=== PATIENT | female | born 1945 | race Two or more races ===

== ENCOUNTER 2020-08-25 16:41 | Outpatient (AMBR) | payer MEDICARE, MEDICAID, SELFPAY ==
--- NOTE | 2020-08-25 17:06 | PTNOTE_ITS ---
PT OP Initial Eval Patient Information Visit Reasons: LS SPINE Medical Diagnosis: DJD L/s Treatment Dx #1: LBP Start of Care: 08/25/20 Date of Onset: 6 weeks ago Initial Assessment Subjective Pt is 75 yr old serbian speaking female who c/o increasing LBP x6 weeks. She points to the flanks as site of pain that increases with transferring from supine to sitting and sit to stand. She is independent with ADL's but pain limits standing to about 20 mins. She started using a SPC for balance over the past week since she lists to that side. She states she has scoliosis and says she can't bend without a back brace. PLOF: she was able to walk and stand without LBP or assistive device PMH: B TKA's, HTN, allergies, OA, gallstones, osteoporosis Imaging: with provider Pt goal: to get rid of the pain Objective Trunk ArOM: B SB 50% with pain B Extension: to neutral limited by pain Flexion: 14 from floor with LBP B rotation: 60% LE strength: B hamstrings: 4-/5 Quads 4-/5 Hip abd/add 4-/5 TTP: moderate L paraspinals L2-3 and diffusely L3-S1, PSIS L>R lumbar paraspinal atrophy Sensation: R medial ankle diminished sensation TTP: lateral lower quadrants moderately from L1 to PSIS Assessment Pt presents with trunk extension sensitivity and overlying myofascial pain and spasming of lateral L/S. She has lumbar extensor atrophy and pain with prolonged standing. Pt has poor/fair pelvic kinematics and difficulty finding neutral spine. 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 Pt requires skilled therapy in order to decrease pain and improve standing tolerance and has fair rehab potential. Short Term and Web Editor Goals 1. Ind with HEP 2. Improved standing tolerance to 30 minutes with <=4/10 LBP 3. Pt will improve ambulatory distance to 2 [address] 4. Pt will squat x15 with lumbar lordosis and no increase in LBP Treatment Plan 90 day POC in order to complete visits. Pt requires skilled therapy in order to increase strength, decrease pain and address aforementioned impairments. Rx may consist of Therex, Manual therapy, Neuromuscular re-education. Modalities as indicated-moist heat packs, ice packs, mechanical traction, estim Frequency and Duration 2x a week for 6 weeks Certification Dates: 08/25/20 to 11/23/20 Office Procedures PT Procedures PT Date of Service: 08/25/20 OP PT Eval Mod Complex 30 minutes: Yes
--- NOTE | 2020-08-31 18:29 | PT.ODAYNRPT ---
PT Outpatient Daily Note Date of Service: 08/31/20 OP Daily Note Visit Reasons: LS SPINE Outpatient Physical Therapy Treatment Date: 08/31/20 Subjective: Pt points to the beltline as site of pain today Objective: See F/S for therex MT: STM L4-5, L5-S1 region x10' Mechanical traction L/S x10' Assessment: Moderate/high tissue irritability of L/S limits transitional movements, transfers and LE strength. Good response to traction straps tightness and compression to lessen LBP. Plan: Continue per POC Length of Time (minutes) of Treatment: 30 Minutes Office Procedures PT Procedures PT Date of Service: 08/31/20 Traction Mechanical: Yes Therapeutic Exercise 15 minutes: Yes Manual Conductor Symphonic Orchestra 15 minutes: Yes PT Procedures PT Date of Service: 08/25/20 OP PT Eval Mod Complex 30 minutes: Yes
--- NOTE | 2020-09-07 18:30 | PT.ODAYNRPT ---
PT Outpatient Daily Note Date of Service: 09/07/20 OP Daily Note Visit Reasons: LS SPINE Outpatient Physical Therapy Treatment Date: 09/07/20 Subjective: Feels about the same today as last visit Objective: See F/S for therex MHP during supine therex Mechanical traction L/S x10' Assessment: Moderate/high tissue irritability of L/S limits transitional movements, transfers and LE strength. Good response to traction straps tightness and compression to lessen LBP. Plan: Continue per POC Length of Time (minutes) of Treatment: 30 Minutes Office Procedures PT Procedures PT Date of Service: 08/31/20 Traction Mechanical: Yes Therapeutic Exercise 15 minutes: Yes Manual Child Support Specialist 15 minutes: Yes PT Procedures PT Date of Service: 09/07/20 Traction Mechanical: Yes Therapeutic Exercise 15 minutes: Yes PT Procedures PT Date of Service: 08/25/20 OP PT Eval Mod Complex 30 minutes: Yes
== END 2020-09-12 23:59 | disposition home or self-care (01) ==
PROVIDERS: PCP Physician Assistant; Referring Provider Physician Assistant; Visit Provider Orthopaedic Surgery
DX: M54.5 Low back pain (principal); M81.0 Age-related osteoporosis without current pathological fracture; I10 Essential (primary) hypertension
CPT/HCPCS: 97012; 97110; 97140; 97162

== ENCOUNTER → 2024-10-21 | Outpatient (BNVA) | payer MEDICARE, MEDICAID, SELFPAY | END | disposition home or self-care (01) | PROVIDERS: PCP Nurse Practitioner Primary Care; Referring Provider Nurse Practitioner Primary Care; Visit Provider Nurse Practitioner Primary Care | DX: R10.13 Epigastric pain (principal); R11.0 Nausea; Z01.810 Encounter for preprocedural cardiovascular examination | CPT/HCPCS: 81001; 93005; 99213; Q0162; A9270 ==

== ENCOUNTER → 2024-10-25 | Outpatient (BNVA) | payer MEDICARE, MEDICAID, SELFPAY | END | disposition home or self-care (01) | PROVIDERS: PCP Nurse Practitioner Primary Care; Referring Provider Nurse Practitioner Primary Care; Visit Provider Nurse Practitioner Primary Care | DX: R10.13 Epigastric pain (principal); N30.00 Acute cystitis without hematuria | CPT/HCPCS: 99213 ==

== ENCOUNTER → 2024-11-11 | Outpatient (BNVA) | payer MEDICARE, MEDICAID, SELFPAY | END | disposition home or self-care (01) | PROVIDERS: PCP Nurse Practitioner Primary Care; Referring Provider Nurse Practitioner Primary Care; Visit Provider Nurse Practitioner Primary Care | DX: R73.03 Prediabetes (principal); E78.5 Hyperlipidemia, unspecified; I10 Essential (primary) hypertension; Z71.2 Person consulting for explanation of examination or test findings; E55.9 Vitamin D deficiency, unspecified | CPT/HCPCS: 99213 ==

== ENCOUNTER → 2025-01-17 | Outpatient (BNVA) | payer MEDICARE, MEDICAID, SELFPAY | END | disposition home or self-care (01) | PROVIDERS: PCP Nurse Practitioner Family; Referring Provider Nurse Practitioner Family; Visit Provider Nurse Practitioner Family | DX: R19.7 Diarrhea, unspecified (principal); M19.91 Primary osteoarthritis, unspecified site | CPT/HCPCS: 99213 ==

== ENCOUNTER → 2025-02-03 | Outpatient (BNVA) | payer MEDICARE, MEDICAID, SELFPAY | END | disposition home or self-care (01) | PROVIDERS: PCP Nurse Practitioner Family; Referring Provider Nurse Practitioner Family; Visit Provider Nurse Practitioner Family | DX: R73.03 Prediabetes (principal); E78.5 Hyperlipidemia, unspecified; I10 Essential (primary) hypertension; Z71.2 Person consulting for explanation of examination or test findings | CPT/HCPCS: 99212; G0463 ==

== ENCOUNTER → 2025-03-04 | Outpatient (BNVA) | payer MEDICARE, MEDICAID, SELFPAY | END | disposition home or self-care (01) | PROVIDERS: PCP Nurse Practitioner Family; Referring Provider Nurse Practitioner Family; Visit Provider Nurse Practitioner Family | DX: I10 Essential (primary) hypertension (principal); J00 Acute nasopharyngitis [common cold]; J30.9 Allergic rhinitis, unspecified | CPT/HCPCS: 90471; 90472; 99213 ==

== ENCOUNTER → 2025-04-04 | Outpatient (BNVA) | payer MEDICARE, MEDICAID, SELFPAY | END | disposition home or self-care (01) | PROVIDERS: PCP Nurse Practitioner Primary Care; Referring Provider Nurse Practitioner Primary Care; Visit Provider Nurse Practitioner Family | DX: R07.81 Pleurodynia (principal) | CPT/HCPCS: 99214; A9270 ==

== ENCOUNTER → 2025-04-04 | Outpatient (CLI) | payer MEDICARE, MEDICAID, SELFPAY ==
--- NOTE | 2025-04-04 15:09 | XR_ITS ---
Examination: Bilateral ribs with upright PA chest 5 views TECHNIQUE: Upright PA chest, [place] right and left ribs total 5 views Date 30/01/2025 1527 hours INDICATIONS: Patient fell 2 years ago with injury to the right chest right rib pain FINDINGS: Mild prominence left ventricle Cardiac leads satisfactory position No pneumothorax No acute rib fractures IMPRESSION: No pneumothorax pulmonary contusion or hemothorax No acute rib fractures
--- NOTE | 2025-04-04 15:09 | XR_ITS ---
Examination: PA lateral chest 2 views TECHNIQUE: Upright PA lateral chest 2 views Date and time: April 04, 2025 1525 hours INDICATIONS: Patient fell 2 years ago with persistent right chest pain. FINDINGS: Mild prominence of ventricle Cardiac leads satisfactory position No pneumothorax Prominent osteopenia No acute clavicle or rib fractures or thoracic vertebral body fractures IMPRESSION: No pneumothorax No acute clavicle or rib or thoracic fractures
== END | disposition home or self-care (01) ==
LOC: CDIM 14:57
PROVIDERS: PCP Nurse Practitioner Family; Referring Provider Nurse Practitioner Family; Visit Provider Nurse Practitioner Family
DX: R07.81 Pleurodynia (principal); S29.9XXS Unspecified injury of thorax, sequela; W19.XXXS Unspecified fall, sequela
CPT/HCPCS: 71046; 71110

== ENCOUNTER → 2025-04-17 | Outpatient (CLI) | payer MEDICARE, MEDICAID, SELFPAY ==
--- NOTE | 2025-04-17 12:24 | XR_ITS ---
Examination: Left knee 4 views TECHNIQUE: AP oblique lateral axial left knee 4 views Date and time: April 17, 2025 1241 hours INDICATIONS: Left knee pain getting worse. FINDINGS: Total left knee arthroplasty. Satisfactory alignment. Prominent osteopenia. No loosening of the prosthetic components. No patellar dislocation IMPRESSION: Total left knee arthroplasty with satisfactory alignment No loosening of the prosthetic components is
== END | disposition home or self-care (01) ==
LOC: CDIM 12:17
PROVIDERS: Referring Provider Nurse Practitioner Primary Care; Visit Provider Nurse Practitioner Primary Care
DX: M25.562 Pain in left knee (principal); Z96.659 Presence of unspecified artificial knee joint
CPT/HCPCS: 73564

== ENCOUNTER → 2025-04-17 | Outpatient (BNVA) | payer MEDICARE, MEDICAID, SELFPAY | END | disposition home or self-care (01) | PROVIDERS: PCP Nurse Practitioner Family; Referring Provider Nurse Practitioner Family; Visit Provider Nurse Practitioner Family | DX: M25.562 Pain in left knee (principal); Z96.652 Presence of left artificial knee joint | CPT/HCPCS: 99213 ==

== ENCOUNTER → 2025-04-23 | Outpatient (BNVA) | payer MEDICARE, MEDICAID, SELFPAY | END | disposition home or self-care (01) | PROVIDERS: PCP Nurse Practitioner Primary Care; Referring Provider Nurse Practitioner Primary Care; Visit Provider Nurse Practitioner Primary Care | DX: M25.562 Pain in left knee (principal); Z96.652 Presence of left artificial knee joint | CPT/HCPCS: 99212; G0463 ==

== ENCOUNTER → 2025-05-06 | Outpatient (BNVA) | payer MEDICARE, MEDICAID, SELFPAY | END | disposition home or self-care (01) | PROVIDERS: PCP Nurse Practitioner Primary Care; Referring Provider Nurse Practitioner Primary Care; Visit Provider Nurse Practitioner Family | DX: R42 Dizziness and giddiness (principal) | CPT/HCPCS: 82948; 85018; 93005; 99214 ==

== ENCOUNTER → 2025-05-13 | Outpatient (BNVA) | payer MEDICARE, MEDICAID, SELFPAY | END | disposition home or self-care (01) | PROVIDERS: PCP Nurse Practitioner Family; Referring Provider Nurse Practitioner Family; Visit Provider Nurse Practitioner Family | DX: R42 Dizziness and giddiness (principal) | CPT/HCPCS: 99214 ==

== ENCOUNTER → 2025-05-20 | Outpatient (BNVA) | payer MEDICARE, MEDICAID, SELFPAY | END | disposition home or self-care (01) | PROVIDERS: PCP Nurse Practitioner Primary Care; Referring Provider Nurse Practitioner Primary Care; Visit Provider Nurse Practitioner Primary Care | DX: R42 Dizziness and giddiness (principal); E78.5 Hyperlipidemia, unspecified; R73.03 Prediabetes; I10 Essential (primary) hypertension; Z71.2 Person consulting for explanation of examination or test findings | CPT/HCPCS: 99212; G0463 ==

== ENCOUNTER 2025-05-23 08:03 | Outpatient (AMB) | payer MEDICARE, MEDICAID, SELFPAY ==
--- NOTE | 2025-05-23 08:34 | ORTHONT_ITS ---
Vital signs 05/23/25 08:42 Height 1.53 m Height Method Measured Weight 77.196 kg Weight Measurement Method Standing Scale BMI 32.9 BP 157/74 H Blood Pressure Source Automatic Cuff Blood Pressure Location Left Upper Arm Position Sitting Respiration 16 Pulse 67 Pulse Source Monitor Temp 98.0 F Temp Source Temporal Artery Scan Pulse Oximetry (%) 94 L Oxygen Delivery Method Room Air Med/Allergies Allergies & Medications Allergies No Known Allergies Allergy (Verified 05/23/25 08:43) Medication Reconciliation atorvastatin 20 mg tablet 20 mg PO QDAY 01/16/24 [History Confirmed 05/23/25] losartan 25 mg tablet 25 mg PO QDAY #90 tabs 05/06/25 [Rx Confirmed 05/23/25] calcium carbonate 600 mg (1.2 x 500 mg calcium (1,250 mg)) PO QDAY #90 tabs 05/20/25 [Rx Confirmed 05/23/25] Exam Exam Patient is in no acute distress and is cooperative with the examination today. Patient has a normal mood and affect. Breathing is nonlabored. In no respiratory distress. Bilateral extremities were evaluated and demonstrates sensation intact to light touch. Palpable pedal pulses are present. No significant edema is present. Left knee incisions clean dry intact. Range of motion is 0 to 110 degrees. Knee stable varus valgus stress as well as AP translation X-rays from April 17, 2025 demonstrate a cemented revision semiconstrained total knee replacement in good alignment position. I do not see any evidence of loosening. Assessment and Plan Problem List (1) Hx of total knee replacement: Qualifiers: Laterality: left Qualified Code(s): Z96.652 - Presence of left artificial knee joint Status: Acute Plan: Patient is an 80-year-old female with a revision total knee replacement for loosening 2 years ago. She reports she still has some tenderness and numbness. We discussed that some of the numbness and tingling is normal given that she has had multiple surgeries. The majority the numbness is adjacent to the incision. We looked at her x-rays and structurally looks good. Her knee feels stable. We can rule out infection but she would like to start physical therapy at this time which I think is reasonable. Advanced Care Planning Discussion Advance care planning discussed with:: patient Office Procedures GNS Level of Care Nursing/Assessment Patient Status: Initial/New Patient Nursing Assessment/Reassesment: Medication Reconciliation, Update PMH in EMR and Vital Signs Coordination of Care: Complex Care and Chronic Disease 1-5, Education Complex Pt/Fam, Consent,records obtained, informed consent, Lab and Imaging orders and Staff clarify orders Special Needs: Language special needs New Patient Charge New Patient Point Assignment: 1104 New Patient Point Charge: MOISTURE MACHINE TENDER Level 3 ([id number]) MA Intake Visit Data Collection New Patient or Established: New Patient (never been to [facility]) Reason for Visit:: LEFT KNEE PAIN Seen by Clinical Staff ONLY (RN/MA): No Fishing Captain Required: Yes PCP or OBGYN visit in last 3 months: Yes Hx Now: No Do You Feel Safe at Home: Yes Authorities Contacted: N/A Questionairres Past Medical History Past Medical History Have you ever been diagnosed with any of the following: Neurological Problems Cerebrovascular Accident (CVA): No Transient Ischemic Attacks (TIA): No Dementia: No Alzheimer's Disease: No Parkinson's Disease: No Brain Tumor: No Meningitis: No Seizures: No Epilepsy: No Multiple Sclerosis: No Cerebral Palsy: No Amyotrophic Lateral Sclerosis (ALS/Kesha Gehrig's): No Guillain-[place] Syndrome: No Spina Bifida: No Paralysis: No Peripheral Neuropathy: No Weinberg's Palsy: No Subdural Hematoma: No Migraine: No Head Trauma: No Spinal Cord Injury: No Traumatic Brain Injury: No Cardiology Problems Myocardial Infarction: No Cardiac Arrhythmia: No Atrial Fibrillation: No Angina: No Heart Murmur: No Coronary Artery Disease: No Atherosclerotic Heart Disease: No Peripheral Vascular Disease: No Hypercholesterolemia: Yes Aneurysm: No Congestive Heart Failure: No Congenital Heart Disease: No Valvular Heart Disease: No Rheumatic Fever: No Cardiomyopathy: No Edema: No Pericarditis: No Cellulitis: No Deep Vein Thrombosis: No Hypertension: Yes Hypotension: No Varicose Veins: No Respiratory Problems Chronic Obstructive Pulmonary Disease (COPD): No Asthma: No Bronchitis: No Emphysema: No Pneumonia: No Pulmonary Fibrosis: No Tuberculosis: No Pulmonary Embolism: No Pulmonary Edema: No Sleep Apnea: No CPAP Dependent: No Respiratory Aspiration: No Dyspnea: No Orthopnea: No Hx Cough: No Cough: No Wheezing: No Chest Deformities: No Smoking: No Smoking Cessation Counseling: No Smoking Exposure: No Tobacco Use: No Clubbing: No Exposure to Respiratory Irritants: No Intubation: No Stomache/Intestinal Problems Liver Cancer: No Hepatitis: No Cirrhosis: No Pancreatic Cancer: No Pancreatitis: No Celiac Disease: No Gall Bladder Disease: No Gastrointestinal Bleed: No Esophageal Varices: No Yee's Esophagus: No Colitis: No Ulcerative Colitis: No Diverticulitis: No Diverticulosis: No Ulcer: No Colorectal Cancer: No Irritable Bowel: No Crohn's Disease: No Obstructive Bowel: No Hiatal Hernia: No Hemorrhoids: No Gastroesophageal Reflux Disease: No Polyps: No Obesity: No Genital/Urinary Problems Chronic Kidney Disease: No Renal Disease: No Kidney Stones: No Polycystic Kidney Disease: No Neurogenic Bladder: No Inguinal Hernia: No Dialysis: No Reproductive Problems Breast Cancer: No Endometriosis: No Fibroids: No Genital Herpes: No Gonorrhea: No Pelvic Inflammatory Disease: No Polycystic Ovarian Syndrome: No Previous Pregnancies: No Syphilis: No Uterine Prolapse: No Musculoskeletal Problems Muscular Dystrophy: No Myasthenia Gravis: No Marfan's Syndrome: No Bone Cancer: No Arthritis: No Rheumatoid Arthritis: No Osteoporosis: No Degenerative Disk Disease: No Gout: No Scoliosis: No Carpal Tunnel Syndrome: No Fibromyalgia: No Fractures: No Degenerative Joint Disease: No Osteomyelitis: No Poliovirus: No Head,Eye,Nose,Throat Problems Cataracts: No Glaucoma: No Blind: No Retinal Detachment: No Macular Degeneration: No Chronic Ear Infections: No Deafness: No Eye Prosthesis: No Endocrine Problems Diabetes Mellitus Type 1: No Diabetes Mellitus Type 2: No Hypoglycemia: No Teddy's Syndrome: No [place]'s Disease: No Hyperthyroidism: No Hypothyroidism: No Thyroid Cancer: No Parathyroid Disease: No Pituitary Disease: No Systemic Lupus Erythematosus: No Syndrome of Inappropriate Antidiuretic Hormone: No Adrenal Disease: No Graves' Disease: No Blood Problems Anemia: Yes Leukemia: No Hemophilia: No Thalassemia: No Sickle Cell Disease: No Clotting Problems: No Psychologic Problems Schizophrenia: No Recreational Drug Use: No Bipolar Disorder: No Depression: No Anxiety: No Behavior Problems: No Self-Mutilation: No Attention Deficit Disorder: No Attention Deficit Hyperactivity Disorder: No Depression: No Post Traumatic Stress Disorder: No Eating Disorder: No Other Problems Hospitalization: No Autoimmune Disease: No Down Syndrome: No Autism: No Developmental Delay: No Cosmetic Surgery: No Shingles: No Falls: No Blood Transfusions: No Blood Transfusion Reaction: No Anesthesia Reactions: No Organ Transplant: No Chemotherapy: No Radiation Therapy: No Hyperbaric Therapy: No MRSA: No VRSA: No Vancomycin-Resistant Enterococci: No Human Immunodeficiency Virus (HIV): No Chicken Pox: No Measles: No Mumps: No Rubella (Sami Measles): No Pertussis: No Klebsiella Pneumoniae Carbapenemase Producing Bacteria: No Clostridium Difficile: No Hepatitis A: No Hepatitis B: No Hepatitis C: No Communicable Disease: No Cancer: No Cervical Cancer: No Lung Cancer: No Ovarian Cancer: No Surgical History Angioplasty: No Appendectomy: No Bariatric Surgery: No Breast Surgery: No Cancer Surgery: No Carotid Endarterectomy: No Cholecystectomy: No Colectomy: No Colostomy: No Coronary Artery Bypass Graft: No Valve Replacement: No Herniorrhaphy: No Total Hip Replacement: No Total Knee Replacement: No Hysterectomy: No Pacemaker: Yes Sinus Surgery: No Splenectomy: No TAHBSO-Total Abdominal Hysterectomy: No Thyroidectomy: No Ureter Stent: No Subjective Visit Visit for: new patient and knee Immunization / Flu Flu Vaccine in the Last 12 Months: Yes Flu Vaccine Exclusion Criteria: Allergy to Eggs History of Present Illness Chief complaint: LEFT KNEE PAIN Patient is an 80-year-old female with a left knee pain. She had a revision left total knee replacement 2 years ago for loosening. She reports that there is some numbness and tingling which is bothering her the most. There are some pain medially as well. She is able to walk with a cane. 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
[2025-05-23 08:42] VITALS: BP 157/74; PULSE 67; RESP 16; TEMP 36.7; O2SAT 94; BMI 32.9
== END 2025-05-23 09:05 | disposition home or self-care (01) ==
LOC: HODSRG 08:03
PROVIDERS: PCP Nurse Practitioner Primary Care; Referring Provider Nurse Practitioner Primary Care; Supervising Provider Orthopaedic Surgery Adult Reconstructive Orthopaedic Surgery; Visit Provider Orthopaedic Surgery Adult Reconstructive Orthopaedic Surgery
DX: M25.562 Pain in left knee (principal); Z96.652 Presence of left artificial knee joint; R20.0 Anesthesia of skin; R20.2 Paresthesia of skin; I10 Essential (primary) hypertension; E78.00 Pure hypercholesterolemia, unspecified
CPT/HCPCS: 99203; G0463

== ENCOUNTER → 2025-05-29 | Outpatient (BNVA) | payer MEDICARE, MEDICAID, SELFPAY | END | disposition home or self-care (01) | PROVIDERS: PCP Nurse Practitioner Family; Referring Provider Nurse Practitioner Family; Visit Provider Nurse Practitioner Family | DX: Z71.2 Person consulting for explanation of examination or test findings (principal) | CPT/HCPCS: 99212; G0463 ==

== ENCOUNTER → 2025-07-07 | Outpatient (BNVA) | payer MEDICARE, MEDICAID, SELFPAY | END | disposition home or self-care (01) | PROVIDERS: PCP Nurse Practitioner Primary Care; Referring Provider Nurse Practitioner Primary Care; Visit Provider Nurse Practitioner Family | DX: H91.93 Unspecified hearing loss, bilateral (principal); H92.03 Otalgia, bilateral | CPT/HCPCS: 99214 ==

== ENCOUNTER → 2025-08-12 | Outpatient (BNVA) | payer MEDICARE, MEDICAID, SELFPAY | END | disposition home or self-care (01) | PROVIDERS: PCP Nurse Practitioner Primary Care; Referring Provider Nurse Practitioner Primary Care; Visit Provider Nurse Practitioner Primary Care | DX: H90.3 Sensorineural hearing loss, bilateral (principal); I10 Essential (primary) hypertension; E78.5 Hyperlipidemia, unspecified | CPT/HCPCS: 99213 ==

== ENCOUNTER → 2025-08-20 | Outpatient (BNVA) | payer MEDICARE, MEDICAID, SELFPAY | END | disposition home or self-care (01) | PROVIDERS: PCP Nurse Practitioner Primary Care; Referring Provider Nurse Practitioner Primary Care; Visit Provider Nurse Practitioner Primary Care | DX: Z00.00 Encounter for general adult medical examination without abnormal findings (principal); M51.369 Other intervertebral disc degeneration, lumbar region without mention of lumbar back pain or lower extremity pain; Z01.89 Encounter for other specified special examinations; E78.5 Hyperlipidemia, unspecified; Z23 Encounter for immunization | CPT/HCPCS: 90471; 90686; 93005; 99215 ==

== ENCOUNTER → 2025-08-25 | Outpatient (BNVA) | payer MEDICARE, MEDICAID, SELFPAY | END | disposition home or self-care (01) | PROVIDERS: PCP Nurse Practitioner Primary Care; Referring Provider Nurse Practitioner Primary Care; Visit Provider Nurse Practitioner Primary Care | DX: R73.03 Prediabetes (principal); Z71.2 Person consulting for explanation of examination or test findings; E78.5 Hyperlipidemia, unspecified | CPT/HCPCS: 99213 ==